=== PATIENT | male | born 1970 | race Caucasian/White ===

== ENCOUNTER 2016-12-13 16:39 | Emergency (ER) | payer SELFPAY ==
[~2016-12-13] VITALS: Ht 182.9 cm; Wt 76.0 kg
[~2016-12-13 16:39] MED LIST: ACYC-1 PO; BACT2OIN TOP; BACT800T5 PO; CEPH500C3 PO; DILA8TAB4 PO; GABA300 PO
[2016-12-13 16:48] VITALS: BP 110/70; PULSE 96; RESP 15; TEMP 98.2; O2SAT 95
--- NOTE | 2016-12-13 16:49 | PD ---
HPI Chief Complaint: Injury Time Seen by Provider: 16:49 Travel History International Travel<30 days: No Contact w/Intl Traveler<30days: No Traveled to known affect area: No History of Present Illness HPI White 6-year-old male presents to emergency Department with complaint of left hand pain and left wrist pain after tripping over a box in his garage while moving some stuff 4 days ago. He denies hitting his head or loss of consciousness. Denies neck pain or back pain. Denies paresthesias, loss of sensation to the affected extremity. Reports decreased range of motion at the wrist. Denies fever, vomiting. Is prescribed Dilaudid for chronic pain and has been taking that for pain management. Has also been elevating, icing, and compressing the wrist with Jack bandage. Symptoms are moderate in severity. Pain is aggravated with palpation and movement. Allergies to morphine and vancomycin. Has no other medical complaints. No other modifying factors or associated signs and symptoms. PFSH Past Medical History Hx Anticoagulant Therapy: No Arthritis: Yes Asthma: No Blood Disorders: No Anxiety: Yes Depression: Yes Cancer: No Cardiovascular Problems: No Chemotherapy: No Congestive Heart Failure: No Cirrhosis: Yes Cerebrovascular Accident: No Diabetes: No Diminished Hearing: No Endocrine: No GERD: No Genitourinary: No Hepatitis: Yes (HEP C) Immune Disorder: Yes (HEP C) Kidney Stones: Yes Musculoskeletal: No Neurologic: No Psychiatric: Yes Reproductive: No Respiratory: No Integumentary: Yes (SHINGLES) Immunizations Current: Yes Migraines: Yes Seizures: No Sleep Apnea: No Thyroid Disease: No Ulcer: No Past Surgical History Appendectomy: Yes Hysterectomy: No Social History Alcohol Use: No Tobacco Use: Yes (3 PER DAY) Substance Use: Yes Allergies-Medications (Allergen,Severity, Reaction): Coded Allergies: morphine (Unverified Allergy, Intermediate, Rash, 12/13/16) vancomycin (Unverified Allergy, Intermediate, Rash, 12/13/16) *MDRO Multi-Drug Resistant Organism (Verified Adverse Reaction, Unknown, 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 Reported Meds & Prescriptions Reported Meds & Active Scripts Active Bactroban 2% Oint (22 gm) (Mupirocin) 22 Gm Oint 2 % TOP TID 7 Days APPLY TO AFFECTED AREAS Keflex (Cephalexin Monohydrate) 500 Mg Cap 500 Mg PO QID 7 Days Bactrim DS (Sulfamethoxazole-Trimethoprim DS) 1 Tab Tab 1 Tab PO BID 7 Days Neurontin (Gabapentin) 300 Mg Cap 300 Mg PO TID 14 Days Zovirax 800 Mg Tab (Acyclovir) 800 Mg Tab 800 Mg PO 5 TIMES A DAY 7 Days Reported Dilaudid 8 mg (Hydromorphone HCl) 8 Mg Tab 8 Mg PO BID Review of Systems Except as stated in HPI: all other systems reviewed are Neg Physical Exam Narrative GENERAL: Well-nourished, well-developed male patient, in no acute distress SKIN: Warm and dry. HEAD: Atraumatic. Normocephalic. EYES: Pupils equal and round. No scleral icterus. No injection or drainage. ENT: Mucosa pink and moist. Airway patent. NECK: Trachea midline. CARDIOVASCULAR: Regular rate. RESPIRATORY: No accessory muscle use. GASTROINTESTINAL: Flat. MUSCULOSKELETAL: Left wrist is edematous and without erythema or ecchymosis; unable to assess range of motion; with tenderness on palpation; no obvious deformity. Left hand with tenderness on palpation wrist with tenderness on palpation; no erythema ; mild edema; decreased range of motion. Left hand with full range of motion at all joints; decreased promotions manager strength. Left upper extremity is supple and non-tense with 2+ radial pulse and sensory intact. No obvious deformities. No clubbing. No cyanosis. NEUROLOGICAL: Awake and alert. Oriented 3. No obvious cranial nerve deficits. Motor grossly within normal limits. Normal speech. PSYCHIATRIC: Appropriate mood and affect; insight and judgment normal. Data Data Last Documented VS Vital Signs Date Time Temp Pulse Resp B/P (MAP) Pulse Ox O2 Delivery O2 Flow Rate FiO2 12/13/16 17:53 12/13/16 16:48 98.2 96 15 95 Orders Orders Hand, Complete ([id number]) (12/13/16 16:48) Wrist, Complete ([id number]) (12/13/16 16:48) Ice/Cold Pack (12/13/16 16:48) Splint Or Brace Apply/Monitor (12/13/16 17:21) Ed Discharge Order (12/13/16 17:21) MDM Medical Decision Making Medical Screen Exam Complete: Yes Emergency Medical Condition: Yes Medical Record Reviewed: Yes Differential Diagnosis Fall, Wrist sprain, hand sprain, wrist fracture, hand fracture Narrative Course 46-year-old male with left wrist and hand injury after mechanical fall 4 days ago. Denies hitting his head or loss of consciousness. Denies neck pain or back pain. Denies anticoagulant therapy. Patient has been taking Dilaudid for pain management and took some earlier today. I offered the patient an anti- inflammatory in the ER and he declined. Left wrist and hand x-ray ordered. 1719: Left wrist and hand x-ray both negative for fracture. Velcro wrist splint provided for support. Patient has Dilaudid at home for pain. Instructed to take Tylenol or ibuprofen as directed and as needed for pain and inflammation Instructed patient to follow up with primary care provider. Patient verbalizes understanding and agreement with treatment plan. Patient is medically cleared and stable for discharge. Discussed reasons to return to the emergency department. Patient agrees with treatment plan. The patients vital signs are stable and the patient is stable for outpatient follow-up and treatment. Patient discharged home, stable and in no acute distress. Diagnosis Primary Impression: Left wrist injury Qualified Codes: S69.92XA - Unspecified injury of left wrist, hand and finger( s), initial encounter Additional Impressions: Injury of left hand Qualified Codes: S69.92XA - Unspecified injury of left wrist, hand and finger( s), initial encounter Fall Qualified Codes: W19.XXXA - Unspecified fall, initial encounter Referrals: [facility] Primary Care Physician Patient Instructions: General Instructions, Hand Sprain (ED), Wrist Sprain (ED) Departure Forms: Tests/Procedures, Work Release Enter return to work date: Dec 17, 2016 Additional Instructions: Tylenol or ibuprofen as directed and as needed to reduce pain Rest, ice, compress, and elevate extremity to decrease pain and inflammation Wrist splint for support Avoid aggravating activity; increase activity as tolerated Follow-up with primary care provider Return to the emergency department immediately with worsening symptoms Med/Other Pt SpecificInfo: No Change to Meds, No Meds Exist/No RX given Disposition: 01 DISCHARGE HOME Condition: Stable Dominique Chaney Dec 13, 2016 16:49
--- NOTE | 2016-12-13 17:13 | RADRPT ---
EXAM DATE/TIME: 12/13/2016 17:01 [facility] COMPARISON: No previous studies available for comparison. INDICATIONS : Fell back on hand 4 days ago in garage. MEDICAL HISTORY : None. SURGICAL HISTORY : None. ENCOUNTER: Initial ACUITY: 4 - 6 days PAIN SCORE: 6/10 LOCATION: Left middle top of wrist. FINDINGS: Minimal soft tissue swelling is evident. The carpal bones appear intact. The interphalangeal and me tacarpophalangeal joints are intact. Bony mineralization is normal. CONCLUSION: Soft tissue swelling, negative for fracture. Guero Gallardo MD FACR on December 13, 2016 at 17:11 Board Certified Radiologist. This report was verified electronically.
--- NOTE | 2016-12-13 17:14 | RADRPT ---
EXAM DATE/TIME: 12/13/2016 17:06 [facility] COMPARISON: No previous studies available for comparison. INDICATIONS : Fell back on hand 4 days ago in garage. MEDICAL HISTORY : None. SURGICAL HISTORY : None. ENCOUNTER: Initial ACUITY: 4 - 6 days PAIN SCORE: 6/10 LOCATION: Left top of wrist. FINDINGS: Soft tissue swelling, negative for fracture. CONCLUSION: Soft tissue swelling over the metacarpals. Negative for fracture. Guero Gallardo MD FACR on December 13, 2016 at 17:12 Board Certified Radiologist. This report was verified electronically.
== END 2016-12-13 17:53 | disposition home or self-care (01) ==
LOC: NEPK 16:39
DX: S63.502A Unspecified sprain of left wrist, initial encounter (principal); F41.9 Anxiety disorder, unspecified; F32.9 Major depressive disorder, single episode, unspecified; B19.20 Unspecified viral hepatitis C without hepatic coma; F17.200 Nicotine dependence, unspecified, uncomplicated; W01.0XXA Fall on same level from slipping, tripping and stumbling without subsequent striking against object, initial encounter
CPT/HCPCS: 73110; 73130; 99283; L3908